=== PATIENT | male | born 2000 | race Caucasian/White ===

== ENCOUNTER 2020-08-23 12:11 | Observation (INO) | payer OTHER, SELFPAY ==
[2020-08-23] VITALS (18 sets, daily range): BP systolic 112–135; BP diastolic 65–87; PULSE 50–84; RESP 14–70; TEMP 36.6–37; O2SAT 95–100; BMI 26.4
--- NOTE | 2020-08-23 13:54 | CTR_ITS ---
PROCEDURE INFORMATION: Exam: CT Abdomen And Pelvis With Contrast Exam date and time: 08/23/2020 2:33 PM Age: 20 years old Clinical indication: Abdominal pain; Localized; Right lower quadrant (rlq); Patient HX: Rlq pain x1 day, fever, PT denies surg HX on ap, PT denies HX of CA, PT denies smoking HX TECHNIQUE: Imaging protocol: Computed tomography of the abdomen and pelvis with intravenous contrast. Axial, coronal and sagittal reformatted images were created and reviewed. Radiation optimization: All CT scans at this facility use at least one of these dose optimization techniques: automated exposure control; mA and/or kV adjustment per patient size (includes targeted exams where dose is matched to clinical indication); or iterative reconstruction. Contrast material: OMNIPAQUE 300; Contrast volume: 95 ml; Contrast route: INTRAVENOUS (IV); COMPARISON: No relevant prior studies available. RADIATION DOSE METRICS: Total DLP (mGy-cm): 889.6 FINDINGS: Liver: 3 mm low-density lesion in the right hepatic lobe, too small to characterize. Gallbladder and bile ducts: No radiodense gallstones. No biliary ductal dilatation. Pancreas: Unremarkable. Spleen: Unremarkable. Adrenal glands: Normal. No mass. Kidneys and ureters: No mass. No radiodense calculi. No hydronephrosis. Stomach and bowel: No bowel wall thickening. No obstruction. No pneumatosis. Appendix: Dilated, thickwalled, hyperemic appendix with mild periappendiceal haziness. Intraperitoneal space: No free fluid. No organized fluid collection. No free air. Vasculature: Unremarkable. No aneurysm. Lymph nodes: Small mesenteric lymph nodes, likely reactive. No pathologically enlarged lymph nodes. Urinary bladder: Unremarkable as visualized. Reproductive: Unremarkable. Bones/joints: No acute osseous abnormality. Soft tissues: Unremarkable. CT/CT abdomen pelvis w con* [id number] IMPRESSION: 1. Acute appendicitis, as described above. No abscess, obstruction or free air. 2. Additional findings, as above. Radiation Dose CTDIVOL = (mGy): DLP = 889.6 (mGy-cm)
--- NOTE | 2020-08-23 13:57 | W.ED.ABDPA2 ---
HPI - Abdominal Pain General: Chief Complaint: Abdominal Pain Stated Complaint: RUQ ABD PAIN Time Seen by Provider: 08/23/20 13:47 Source: patient Mode of arrival: ambulatory Limitations: no limitations History of Present Illness: HPI narrative: 20-year-old male states been having abdominal pain started yesterday. Symptoms right lower quadrant is worsened throughout the day. He states now 7 out of 10. Worse with palpation and improved with laying still. Denies any vomiting or diarrhea. Denies any fever. MD elicited complaint: abdominal pain Pertinent past history: none Onset (ago): day(s) Pain Consistency: constant Location: RLQ Severity: moderate Quality: stabbing Radiation: none Migration to: no migration Exacerbating factors: movement Relieving factors: rest Associated Symptoms: Denies chills, diarrhea, dysuria, fever(s), nausea and vomiting Review of Systems Const: Denies: fever(s), chills, body aches or change in appetite Eyes: Denies: blurry vision or eye discomfort ENMT: Denies: throat pain or dental pain Card: Denies: chest pain Resp: Denies: dyspnea GI: Denies: abdominal pain, nausea, vomiting or diarrhea : Denies: dysuria Musc: Denies: neck pain or back pain Skin/Breast: Denies: rash Neuro: Denies: headache(s) Psych: Denies: depression Misha/Lymph: Denies: easy bruising All/Imm: Denies: urticaria Physical Exam Const: COMMON NORMALS: no acute distress, patient oriented x3 and healthy appearing HENMT: COMMON NORMALS: normocephalic and atraumatic HEAD & SCALP: normocephalic and atraumatic Eye: COMMON NORMALS: Equal, round and reactive pupils present and EOMs intact bilaterally PUPIL: Yes Equal, round and reactive pupils present Neck/C-Spine: COMMON NORMALS: full ROM and supple Chest: COMMONS NORMALS: normal inspection of the chest and normal palpation of entire chest wall Resp: COMMON NORMALS: normal respiratory effort, No retractions, No use of accessory muscles and clear to auscultation bilaterally AUSCULTATION: clear to auscultation bilaterally Cardio: COMMON NORMALS: regular rate, regular rhythm and No murmurs present (Cardio) RATE: regular rate RHYTHM: regular rhythm GI: COMMON NORMALS: Normal to inspection, nondistended, normoactive bowel sounds present, Soft to palpation, non-tender and no masses PALPATION: Yes Soft to palpation and Yes Tenderness to palpation present (GI) Details: RLQ Extremity: COMMON NORMALS: normal to inspection and full ROM Neuro: COMMON NORMALS: patient oriented x3, moves all extremities and no focal motor deficits Psych: COMMON NORMALS: mental status grossly normal, Normal thought process present and cooperative THOUGHT PROCESS: Normal thought process present Skin: COMMON NORMALS: no rashes or lesions noted and no wounds GENERAL SKIN EXAM: no rashes or lesions noted Course Vital Signs: Vital signs: Vital Signs Temperature 98.6 F 08/23/20 12:24 Pulse Rate 50 L 08/23/20 12:24 Respiratory Rate 18 08/23/20 14:19 Blood Pressure 123/71 08/23/20 12:24 Pulse Oximetry 97 08/23/20 14:19 MDM - Abdominal Pain MDM Narrative: Medical decision making narrative: Patient presents with abdominal pain with CT findings consistent with appendicitis. I spoke to surgeon on-call will admit to surgery. Patient is well-appearing here and pain has been controlled. Lab Data: Labs: Lab Results 08/23/20 08/23/20 08/23/20 Range/Units 13:08 14:08 14:08 WBC 11.8 H (4.0-10.0) 10^3/ uL RBC 5.20 (4.1-5.3) 10^6/u L Hgb 15.7 (11.7-16.6) g/dL Hct 46.0 (42.0-52.0) % MCV 88.5 (80-94) fL MCH 30.2 (28.0-34.0) pg MCHC 34.1 (30.0-36.0) g/dL RDW 11.5 L (12.1-15.1) % Plt Count 255 (130-400) 10^3/c mm MPV 11.0 H (7.4-10.4) fL Neut % (Auto) 63.4 % Lymph % (Auto) 24.9 % [place] % (Auto) 10.3 % Eos % (Auto) 0.6 % Baso % (Auto) 0.3 % Neut # (Auto) 7.47 (1.8-7.7) 10^3/u L Lymph # (Auto) 2.9 (0.8-4.8) 10^3/u L [place] # (Auto) 1.2 H (0.2-0.9) 10^3/u L Eos # (Auto) 0.1 (0.0-0.8) 10^3/u L Baso # (Auto) 0.0 (0.0-0.1) 10^3/u L Nucleated RBC % (a uto) 0 % Nucleated RBCs # 0.0 /100WBC Sodium 138 (136-145) mmol/L Potassium 3.8 (3.5-5.1) mmol/L Chloride 101 (98-107) mmol/L Carbon Dioxide 28 (22-29) mmol/L Anion Gap 12.8 (5-19) BUN 7 (6-20) mg/dL Creatinine 1.0 (0.7-1.2) mg/dL GFR Calculation 93.4 (90-130) mL/min Glucose 91 (65-115) mg/dL Calcium 9.6 (8.5-10.5) mg/dL Total Bilirubin 0.7 (0.15-1.2) mg/dL AST 15 (0-40) U/L ALT 20 (0-41) U/L Alkaline Phosphata se 56 (40-130) IU/L Total Protein 7.0 (6.6-8.7) g/dL Albumin 4.6 (3.5-5.2) g/dL Globulin 2.4 (1.3-4.6) g/dL Lipase 25 (13-60) U/L Urine Color Straw (Yellow) Urine Appearance Clear (CLEAR) Urine pH 7 (5-7) Ur Specific Gravit y 1.005 (1.005-1.030) Urine Protein Neg (Negative) Urine Glucose (UA) Norm (Normal) Urine Ketones Negative (Negative) Urine Blood 2+ H (Negative) Urine Nitrate Negative (Negative) Urine Bilirubin Neg (Negative) Urine Urobilinogen Norm (Negative) mg/dL Ur Leukocyte [place]umiko ase Negative (Negative) Urine RBC Rare (0-2) /hpf Urine WBC None (0-5) /hpf Ur Squamous Epith Cells None (0-5) /hpf Amorphous Sediment Not Reportable Urine Bacteria Trace (NONE) /hpf Imaging Data ^: CT Abd/Pel: Radiologist's impression: [address] [address] [address] Scan Report Signed with Addenda Patient: Randell Will Unit #: [id number] : 2000 Age/Sex: 20 / M ADM Date: 08/23/20 Loc: ER Room/Bed: Attending Dr: Ordering Provider/Ordering MD: Kishore Juarez MD Date of Service: 08/23/20 Procedure(s): CT abdomen pelvis w con* [id number] Accession Number(s): [id number] Report Number: [id number]/CT abdomen pelvis w con* [id number] ADDENDUM: THIS REPORT CONTAINS FINDINGS THAT MAY BE CRITICAL TO PATIENT CARE. The findings were verbally communicated via telephone conference with kishore Juarez at 3:12 PM [employer]ES SUPERVISOR on 08/23/2020. The findings were acknowledged and understood. Radiation Dose CTDIVOL = (mGy): DLP = 889.6 (mGy-cm) Addendum Dictated By: Brian Quach MD Addendum Signed By: Brian Quach MD Signed Date/Time: 0 1514 Addendum Cosigned By: PROCEDURE INFORMATION: Exam: CT Abdomen And Pelvis With Contrast Exam date and time: 08/23/2020 2:33 PM Age: 20 years old Clinical indication: Abdominal pain; Localized; Right lower quadrant (rlq); Patient HX: Rlq pain x1 day, fever, PT denies surg HX on ap, PT denies HX of CA, PT denies smoking HX TECHNIQUE: Imaging protocol: Computed tomography of the abdomen and pelvis with intravenous contrast. Axial, coronal and sagittal reformatted images were created and reviewed. Radiation optimization: All CT scans at this facility use at least one of these dose optimization techniques: automated exposure control; mA and/or kV adjustment per patient size (includes targeted exams where dose is matched to clinical indication); or iterative reconstruction. Contrast material: OMNIPAQUE 300; Contrast volume: 95 ml; Contrast route: INTRAVENOUS (IV); COMPARISON: No relevant prior studies available. RADIATION DOSE METRICS: Total DLP (mGy-cm): 889.6 FINDINGS: Liver: 3 mm low-density lesion in the right hepatic lobe, too small to characterize. Gallbladder and bile ducts: No radiodense gallstones. No biliary ductal dilatation. Pancreas: Unremarkable. Spleen: Unremarkable. Adrenal glands: Normal. No mass. Kidneys and ureters: No mass. No radiodense calculi. No hydronephrosis. Stomach and bowel: No bowel wall thickening. No obstruction. No pneumatosis. Appendix: Dilated, thickwalled, hyperemic appendix with mild periappendiceal haziness. Intraperitoneal space: No free fluid. No organized fluid collection. No free air. Vasculature: Unremarkable. No aneurysm. Lymph nodes: Small mesenteric lymph nodes, likely reactive. No pathologically enlarged lymph nodes. Urinary bladder: Unremarkable as visualized. Reproductive: Unremarkable. Bones/joints: No acute osseous abnormality. Soft tissues: Unremarkable. CT/CT abdomen pelvis w con* [id number] IMPRESSION: 1. Acute appendicitis, as described above. No abscess, obstruction or free air. 2. Additional findings, as above. Discharge Plan Discharge Patient Disposition: Admitted As Inpatient Clinical Impression: Acute appendicitis Qualifiers: Acute appendicitis type: unspecified acute appendicitis type Qualified Code(s): K35.80 - Unspecified acute appendicitis Condition: Stable Coding Level of Care Code ED [employer] for [facility] Fwd Exam Comprehensive
[2020-08-23 14:10] LABS: Add Urine Microscopic? YES; Bilirubin Urine Neg (Negative); Blood Urine 2+ (Negative); Glucose Urine UA Norm (Normal); Ketones Urine Negative (Negative); Leukocyte Esterase Urine Negative (Negative); Nitrate Urine Negative (Negative); Protein Urine Neg (Negative); RBC Urine RARE /hpf (0-2); Specific Gravity, Urine 1.005 (1.005-1.030); Urine Appearance Clear (CLEAR); Urine Color Straw (Yellow); Urobilinogen Urine Norm (Negative); pH Urine 7 (5-7)
[2020-08-23 14:11] LABS: Add Urine Culture? No; Bacteria Urine TRACE /hpf
[2020-08-23] MEDS: sodium chloride 0.9% 1,000 ML 999 ML IV (14:15)
[2020-08-23] MEDS: ondansetron 2 mg/ML SDV 2 mL 4 MG IVP (14:17)
[2020-08-23] MEDS: morphine 4 mg/mL SDV 1 mL IVP ×2 (14:19→22:43)
[2020-08-23 14:21] LABS: Basophils % 0.3 %; Eosinophils # 0.1 10^3/uL (0.0-0.8); Eosinophils % 0.6 %; Hemoglobin 15.7 g/dL (11.7-16.6); Lymphocytes # 2.9 10^3/uL (0.8-4.8); Lymphocytes % 24.9 %; Mean Corpuscular HGB Conc 34.1 g/dL (30.0-36.0); Mean Corpuscular Hemoglobin 30.2 pg (28.0-34.0); Mean Corpuscular Volume 88.5 fL (80-94); Monocytes # 1.2 10^3/uL (0.2-0.9); Monocytes % 10.3 %; Neutrophils # 7.47 10^3/uL (1.8-7.7); Neutrophils % 63.4 %; Nucleated Red Blood Cells % 0 %; Platelet Count 255 10^3/cmm (130-400); Red Cell Distribution Width 11.5 % (12.1-15.1); White Blood Count 11.8 10^3/uL (4.0-10.0)
[2020-08-23 14:45] LABS: Alanine Aminotransferase 20 U/L (0-41); Albumin Level 4.6 g/dL (3.5-5.2); Alkaline Phosphatase 56 IU/L (40-130); Anion Gap 12.8 (5-19); Aspartate Amino Transferase 15 U/L (0-40); Blood Urea Nitrogen 7 mg/dL (6-20); Calcium 9.6 mg/dL (8.5-10.5); Carbon Dioxide 28 mmol/L (22-29); Chloride 101 mmol/L (98-107); Globulin 2.4 g/dL (1.3-4.6); Glomerular Filtration Rate 93.4 mL/min (90-130); Glucose 91 mg/dL (65-115); Lipase 25 U/L (13-60); Osmolality Calculated 284 mOsm/kg (285-295); Potassium 3.8 mmol/L (3.5-5.1); Sodium 138 mmol/L (136-145); Total Bilirubin 0.7 mg/dL (0.15-1.2)
[2020-08-23] MEDS: iohexol 300 mg/mL 100 mL Btl IV (14:45)
--- NOTE | 2020-08-23 15:16 | PM.HP ---
Providers/Chief Complaint Admitting Physician: Oleksandr Ware MD Chief Complaint: RLQ ABD PAIN History of Present Illness Mr Randell Will is a 20 year old male presents to the emergency department with right-sided abdominal pain that started around 3 PM yesterday associated with nausea pain was so intense and sharp on the right side. Patient woke up today felt a bit better but on moving around started hurting, so he presented to the ER and further work-up showed a leukocytosis of 11,000+ a CT scan of the abdomen and pelvis shown below FINDINGS: Liver: 3 mm low-density lesion in the right hepatic lobe, too small to characterize. Gallbladder and bile ducts: No radiodense gallstones. No biliary ductal dilatation. Pancreas: Unremarkable. Spleen: Unremarkable. Adrenal glands: Normal. No mass. Kidneys and ureters: No mass. No radiodense calculi. No hydronephrosis. Stomach and bowel: No bowel wall thickening. No obstruction. No pneumatosis. Appendix: Dilated, thickwalled, hyperemic appendix with mild periappendiceal haziness. Intraperitoneal space: No free fluid. No organized fluid collection. No free air. Vasculature: Unremarkable. No aneurysm. Lymph nodes: Small mesenteric lymph nodes, likely reactive. No pathologically enlarged lymph nodes. Urinary bladder: Unremarkable as visualized. Reproductive: Unremarkable. Bones/joints: No acute osseous abnormality. Soft tissues: Unremarkable. CT/CT abdomen pelvis w con* [id number] IMPRESSION: 1. Acute appendicitis, as described above. No abscess, obstruction or free air. 2. Additional findings, as above. Patient recalls low-grade temperature but no chills denies any recent exposure to COVID-19 patients no previous episodes of such pain and no change in bowel habits or dysuria, patient reports that he had previous history of tonsillectomy and wisdom tooth extraction without complications. General surgery was consulted further evaluation management Review of Systems General: Reports: 10 or more systems reviewed and unremarkable except in HPI and below Medications/Allergies Home Medications Medication Instructions Recorded Confirmed Last Taken Type acetaminophen [Tylenol] 325 - 650 mg PO Q4H PRN 08/23/20 08/23/20 08/22/20 History ibuprofen 200 - 400 mg PO Q4H PRN 08/23/20 08/23/20 08/22/20 History Allergies Allergy/AdvReac Type Severity Reaction Status Date / Time Penicillins Allergy Severe Anaphylaxis Verified 08/23/20 15:33 PFSH Acute PFSH: Medical History Tonsillectomy planned Surgical History H/O wisdom tooth extraction Social History Smoking and tobacco status: never smoked Alcohol intake: never Substance/Drug Use: never Vitals/I&O/Wt Last Vital Signs Temp 98.6 F 08/23/20 12:24 Pulse 50 L 08/23/20 12:24 Resp 18 08/23/20 14:19 BP 123/71 08/23/20 12:24 Pulse Ox 97 08/23/20 14:19 Weight last 48 hrs Weight 200 lb Physical Exam Narrative: EXAM NARRATIVE: Patient is conscious alert oriented X3 BMI 26.4 Head and neck examination PERRLA no masses no cervical lymphadenopathy no jaundice Cardiac examination audible S1-S2 no murmurs no gallops no arrhythmias Chest is clear bilateral,abscence of Rhonchi or wheezes,no surgical emphysema Abdomen right lower quadrant tenderness with guarding and localized rigidity at McBurney's point. Rovsing sign is positive. Otherwise nondistended soft no organomegaly guarding or rigidity/no signs of peritonitis Extremities no cyanosis no clubbing no edema Data : 08/23/20 14:08 08/23/20 14:08 A&P Assessment and plan (1) Acute appendicitis: After thorough history physical examination and reviewing the chart and CT scanimages with my personal interpretion, I counseled the patient for laparoscopic appendectomy possible open. Indications, risks, benefits and alternatives were all discussed with the patient and did agree to proceed. Rationale was carefully and clearly discussed with the patient.Appropriate informed consent have been reviewed and signed Status: Acute Qualifiers: Acute appendicitis type: unspecified acute appendicitis type Qualified Code(s): K35.80 - Unspecified acute appendicitis Attestations Medical Necessity Statement*: Observation status postoperative pain control Time Spent in Patient Care: (>than 50% of time spent in counselling and/or direct pt care on unit). 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
[2020-08-23] MEDS: sodium chloride 0.9% 1,000 ML 30 ML IV (16:01)
--- NOTE | 2020-08-23 16:51 | ANES.PREANE2 ---
Pre-Anesthetic Assessment Pre-Anesthetic Assessment: Height/Weight: Height 1.85 m Weight 90.718 kg Temp Pulse Resp BP Pulse Ox 98.3 F 53 L 18 122/86 98 08/23/20 15:48 08/23/20 15:48 08/23/20 15:48 08/23/20 15:48 08/23/20 15:48 Preop Diagnosis: Acute appendicitis Proposed Procedure: Operation Date: 08/23/20 16:00 Proposed Procedures p Laparoscopic Appendectomy(Not Applicable) - Oleksandr Ware MD Operation Date: 08/23/20 17:00 Proposed Procedures p Laparoscopic Appendectomy(Not Applicable) - Oleksandr Ware MD Familial anesthetic complications: None Was Beta Damon taken within 24 hours: N/A Last intake: Intake Last Liquid Date 08/23/20 Last Liquid Time 11:30 Last Solid Date 08/22/20 Last Solid Time 21:00 Social: Social History: Tobacco and No alcohol Exam: Pre-Anes Outpt Exam: alert, oriented x 3, clear to auscultation bilaterally and regular rate & rhythm Airway: Cervical ROM: WNL MP: 2 Dentition: Full Anesthetic Plan: ASA status: 1E Anesthesia: General Risk of > 500 ml blood loss (7ml/kg in children): No Meds/Allergies Current Medications: Current Medications Generic Name Dose Route Start Last Admin Trade Name Freq PRN Reason Stop Dose Admin Sodium Chloride 1,000 mls @ 30 ml s/hr 08/23/20 15:45 08/23/20 16:01 Sodium Chloride 0.9% IV 08/24/20 15:44 30 mls/hr .Q24H SAILAJA Administration PFSH Anesthesia PFSH: Medical History Tonsillectomy planned Surgical History H/O wisdom tooth extraction Social History Smoking and tobacco status: never smoked Alcohol intake: never Substance/Drug Use: never Data Anesthesia CBC & Chem 7: 08/23/20 14:08 08/23/20 14:08 Other Labs: Laboratory Results - last 48 hr 08/23/20 08/23/20 08/23/20 13:08 14:08 14:08 WBC 11.8 H RBC 5.20 Hgb 15.7 Hct 46.0 MCV 88.5 MCH 30.2 MCHC 34.1 RDW 11.5 L Plt Count 255 MPV 11.0 H Neut % (Auto) 63.4 Lymph % (Auto) 24.9 [place] % (Auto) 10.3 Eos % (Auto) 0.6 Baso % (Auto) 0.3 Neut # (Auto) 7.47 Lymph # (Auto) 2.9 [place] # (Auto) 1.2 H Eos # (Auto) 0.1 Baso # (Auto) 0.0 Nucleated RBC % (auto) 0 Nucleated RBCs # 0.0 Sodium 138 Potassium 3.8 Chloride 101 Carbon Dioxide 28 Anion Gap 12.8 BUN 7 Creatinine 1.0 GFR Calculation 93.4 Glucose 91 Calculated Osmolality 284 L Calcium 9.6 Total Bilirubin 0.7 AST 15 ALT 20 Alkaline Phosphatase 56 Total Protein 7.0 Albumin 4.6 Globulin 2.4 Lipase 25 Urine Color Straw Urine Appearance Clear Urine pH 7 Ur Specific [place] 1.005 Urine Protein Neg Urine Glucose (UA) Norm Urine Ketones Negative Urine Blood 2+ H Urine Nitrate Negative Urine Bilirubin Neg Urine Urobilinogen Norm Ur Leukocyte Esterase Negative Urine RBC Rare Urine WBC None Ur Squamous Epith Cells None Amorphous Sediment Not Reportable Urine Bacteria Trace Cardiac Studies: No Data to Display
[2020-08-23] MEDS: ciprofloxacin 400 MG/200 ML PREMIX 200 MG IV (17:06)
[2020-08-23] MEDS: metroNIDAZOLE IV 500 MG/100 ML PREMIX 100 MG IV (17:12)
[2020-08-23] MEDS: lidocaine 2% INJ 20 mL INJECTION (17:23)
--- NOTE | 2020-08-23 18:01 | P.OP_ITS ---
Operative Report Date of procedure: August 23, 2020 Pre-op Diagnosis: Acute appendicitis Post-op diagnosis: same Post-op Diagnosis: Retrocecal acute appendicitis without suppuration Procedure Done: Laparoscopic appendectomy Specimens removed/disposition: Appendix Surgeon: Oleksandr Ware Integrated Logistics Support Manager: Surgical jaky Holguin nurse Sarah Anesthesia: General (cushion maker hand Tyrel) Estimated blood loss (mL): 10 Condition: stable Disposition: observation Brief History: This is a pleasant 20 years old gentleman presents with worsening acute abdominal pain was found to have acute appendicitis on the CT scan. After thorough history physical examination and reviewing the chart and images with my personal interpretion, I counseled the patient for laparoscopic appendectomy possible open. Indications, risks, benefits and alternatives were all discussed with the patient and did agree to proceed. Rationale was carefully and clearly discussed with the patient.Appropriate informed consent have been reviewed and signed Procedure: Patient after being identified in the holding area and asked to void urine, and informed consent per chart ,patient was then taken back to the OR placed in supine position got intubated by anesthesia left arm was tucked tucked ,Timeout was done verifying the patient's name/date of /planned procedure and destination after the procedure, all were in agreement., preoperative antibiotics administered per protocol. prep and drape of the abdomen was done under the usual sterile technique. Started by longitudinal skin incision supraumbilical using a Bonilla trocar technique safe entry to the abdominal cavity was achieved verified by using 10 mm zero degree laparoscopy, switched to a 30? scope under direct visualization a suprapubic 5 mm trocar was inserted followed by another 5 mm trocar inserted in the left lower quadrant, I was able to position the patient in an T Morrison and left side down, dissection of the retrocecal acutely inflamed appendix there was some adhesions towards the lateral pelvic wall that was taken down by sharp and blunt dissection, attention was deviated to the healthy base of the appendix where I had to switch the camera to 5 mm 30? scope got introduced through the left lower quadrant and through the Bonilla trocar under direct visualization a GI stapler 45 mm blue load was applied at the healthy part of the base of the appendix, and an Endoloop PDS was applied onto the mesoappendix for control , the appendix was then retrieved in an Endo Catch bag, final survey was done of the abdomen and pelvis , irrigation with warm saline, and suction was obtained. 5 mm clips were applied onto the mesoappendix as well as the appendectomy staple line and a right lateral pelvic wall for minimal oozing. Final look laparoscopy was done showing no other abnormalities or injuries, all trocars were taken out under direct visualization after the supraumblical trocar site was closed by #1 PDS sutures under direct vision using fascial closure device ,followed by skin closure using 4-0 Monocryl of all trocar site incisions followed by surgical glue. infiltration of local lidocaine 2% was done to all incision sites.Dry dressing was applied. Count was completed at the end of the procedure for [place], sponges and instruments Patient tolerated the procedure well and was transferred to the recovery area after extubation. I was present for the whole entire procedure
[2020-08-23] MEDS: meperidine 50 mg/mL INJ 12.5 MG IVP ×2 (18:15→18:20)
[2020-08-23] MEDS: HYDROcodone-acetaminophen 5-325 mg Tablet 1 TAB PO (20:02)
[2020-08-23] MEDS: lactated ringers 1,000 ML 100 ML IV (20:03)
[2020-08-24 01:40] VITALS: BP 133/80; PULSE 48; RESP 18; TEMP 36.8; O2SAT 97
--- NOTE | 2020-08-24 02:30 | PC.NURSE ---
Ice pack wrapped in pillow case applied to pts abdomen.
[2020-08-24] MEDS: HYDROcodone-acetaminophen 5-325 mg Tablet 1 TAB PO (02:55)
--- NOTE | 2020-08-24 02:57 | PC.NURSE ---
Pt was unable to tolerate ice pack to abdomen.
[2020-08-24 04:00] VITALS: BP 114/71; PULSE 64; RESP 17; TEMP 36.7; O2SAT 96
[2020-08-24 04:39] VITALS: RESP 18
[2020-08-24] MEDS: morphine 4 mg/mL SDV 1 mL IVP (04:39)
[2020-08-24] MEDS: lactated ringers 1,000 ML 100 ML IV (04:43)
--- NOTE | 2020-08-24 05:48 | PM.SDS ---
Short Stay Summary Providers Date of Admit/Discharge: 08/24/20 Attending Provider: Oleksandr Ware MD Chief Complaint: RLQ ABD PAIN HPI History of Present Illness Randell Will is a 20 year old male presented with worsening abdominal pain and was found to have acute appendicitis. Patient undergone uneventful laparoscopic appendectomy. Review of Systems General: Reports: 10 or more systems reviewed and unremarkable except in HPI and below Home Meds/Allergies Home Medications and Allergies Allergies Allergy/AdvReac Type Severity Reaction Status Date / Time Penicillins Allergy Severe Anaphylaxis Verified 08/24/20 08:11 PFSH Acute PFSH: Medical History Tonsillectomy planned Surgical History H/O wisdom tooth extraction Social History Smoking and tobacco status: never smoked Alcohol intake: never Substance/Drug Use: never Vitals/I&O/Wt Last Vital Signs Temp 98.0 F 08/24/20 04:00 Pulse 64 08/24/20 04:00 Resp 18 08/24/20 04:39 BP 114/71 08/24/20 04:00 Pulse Ox 96 08/24/20 04:00 08/23/20 08/23/20 08/24/20 14:59 22:59 06:59 Intake Total 400 / 400 1166.667 / 1566.667 Output Total 660 / 660 625 / 1285 Balance -260 / -260 541.667 / 281.667 Weight last 48 hrs Weight 200 lb Physical Exam Narrative: EXAM NARRATIVE: Patient is conscious alert oriented X3 BMI 26.4 Head and neck examination PERRLA no masses no cervical lymphadenopathy no jaundice Abdomen nontender except mildly at the incision site nondistended soft no organomegaly guarding or rigidity/no signs of peritonitis Extremities no cyanosis no clubbing no edema Hospital Course Discharge Summary Patient overall did well after surgery tolerating p.o. intake and passing gas. Slight elevation of WBC count postoperatively likely due to stress as the appendix was inflamed but without evidence of perforation. We will plan to send the patient home empirically on ciprofloxacin 500 mg twice daily for 5 days. Also pain medications has been ordered and will have the patient follow-up with me in the office in 10 days. Patient maintained to have stable vital signs and good urine output. Ambulating with ease. SSS Data Data Completed and Pending: Completed Studies During Hospitalization Category Date Time Status CT abdomen pelvis w con* [id number] Urge nt Cat Scan 08/23/20 13:54 Completed Pending at discharge Category Date Time Status ES surgery / GI i mages Routine Exams 08/23/20 16:10 Taken Basic Metabolic P zeferino AM [facility] Lab 08/24/20 05:28 Received Complete Blood Co unt w/Auto AM [facility] Lab 08/24/20 05:28 Results Pathology: Surgic al [PTH] Routine Pth 08/23/20 18:16 Ordered Diagnoses at Discharge Discharge Diagnosis (1) Acute appendicitis: Status: Resolved Permanent problem details: Condition resolved Qualifiers: Acute appendicitis type: unspecified acute appendicitis type Qualified Code(s): K35.80 - Unspecified acute appendicitis Discharge Plan Discharge Patient Disposition: Home Condition: Stable Prescriptions: [place] 5-325 mg tablet 1 tab PO Q6H PRN (Reason: pain) Qty: 28 RF: 0 Cipro 500 mg tablet 500 mg PO BID 5 Days Qty: 10 RF: 0 Discontinued acetaminophen [Tylenol] 325 mg Tablet 325 - 650 mg PO Q4H PRN (Reason: Pain) RF: 0 ibuprofen 200 mg Tablet 200 - 400 mg PO Q4H PRN (Reason: Pain) RF: 0 Discharge Orders: Discharge Order (Routine); Ordered 08/24/20 Ordered By: Oleksandr Ware Referrals: Oleksandr Ware MD [Physician] - (Return to surgery office in 10 days) Discharge Diet: Advance as tolerated Discharge Activity: Limit activity as instructed Patient Instructions: Appendicitis (GEN) Activity Restrictions/Additional Instructions: 1. Patient can shower after 48 hours from surgery 2. Remove Dermabond 7 to 10 days after surgery, if there is a secondary dressing can take down after 48 hours. 3. Up and walking as tolerated 4. Do lift more than 5 pounds first 2 weeks after surgery and not more than 25 pounds 6 to 8 weeks after surgery. 5. Do not operate heavy machinery or drive while using pain medications. 6.Contact the office or return to the ER for worsening nausea vomiting fevers or chills, or noticing any redness around incision sites or discharge. Attestations Medical Necessity Statement*: Observation status overnight for pain control. Time Spent in Patient Care*: less than 30 min Specific Discharge Activities: Specific discharge activities: educating patient Status at Discharge: Cognitive status at discharge: cognitively intact, Behavioral status at discharge: cooperative, Functional status at discharge: independent ambulation Overall status at discharge: patient is progressing back to baseline Quality Metrics Clinical Quality Measures: During this hospital stay, did patient experience: None Coding Level of Care Code Acute [employer] Diagnoses Acute appendicitis K35.80 Acute appendicitis type: unspecified acute appendicitis type
[2020-08-24 05:50] LABS: Basophils % 0.2 %; Hematocrit 46.3 % (42.0-52.0); Hemoglobin 15.6 g/dL (11.7-16.6); Lymphocytes # 1.7 10^3/uL (0.8-4.8); Lymphocytes % 13.1 %; Mean Corpuscular HGB Conc 33.7 g/dL (30.0-36.0); Mean Corpuscular Hemoglobin 30.1 pg (28.0-34.0); Mean Corpuscular Volume 89.2 fL (80-94); Mean Platelet Volume 10.8 fL (7.4-10.4); Monocytes # 0.9 10^3/uL (0.2-0.9); Monocytes % 7.1 %; Neutrophils # 10.08 10^3/uL (1.8-7.7); Neutrophils % 79.2 %; Nucleated Red Blood Cells % 0 %; Platelet Count 284 10^3/cmm (130-400); Red Blood Count 5.19 10^6/uL (4.1-5.3); Red Cell Distribution Width 11.2 % (12.1-15.1); White Blood Count 12.7 10^3/uL (4.0-10.0)
[2020-08-24 06:45] LABS: Anion Gap 14.9 (5-19); Blood Urea Nitrogen 8 mg/dL (6-20); Calcium 9.4 mg/dL (8.5-10.5); Carbon Dioxide 25 mmol/L (22-29); Chloride 101 mmol/L (98-107); Glomerular Filtration Rate 105.5 mL/min (90-130); Glucose 107 mg/dL (65-115); Osmolality Calculated 283 mOsm/kg (285-295); Potassium 3.9 mmol/L (3.5-5.1); Sodium 137 mmol/L (136-145)
--- NOTE | 2020-08-24 07:35 | PC.NURSE ---
Discharge instructions reviewed verbalized understanding, denies further questions or concerns, refuses to wait until 0800 for staff to call and make follow up appointment with Dr. Shelley, states, I will call him at 0800 and make the appointment for 10 days like it says on the paper.
[2020-08-24 07:57] VITALS: BP 115/70; PULSE 66; RESP 16; TEMP 36.7; O2SAT 97
== END 2020-08-24 07:57 | disposition home or self-care (01) ==
LOC: ER 15:17 → OR 15:21 → MEDSURG 17:19
PROVIDERS: Registered Nurse; Admitting Provider Surgery; Emergency Provider Emergency Medicine; Visit Provider Surgery
PROC: 0DTJ4ZZ Resection of Appendix, Percutaneous Endoscopic Approach (ICD-10-PCS; CPT 44970; principal; 2020-08-23 17:00)
DX: K35.80 Unspecified acute appendicitis (principal)
CPT/HCPCS: 44970; 12345; 36415; 74177; 80048; 80053; 81001; 83690; 85025; 88304; 96361; 96365; 96367; 96375; 99282; 99285; G0378; J0131; J0744; J1100; J2175; J2270; J2405; J2704; J3010; J3490; J7030; Q9967; S0030

== ENCOUNTER → 2021-10-01 16:15 | Outpatient (BNVA) | payer OTHER, SELFPAY | PROVIDERS: Visit Provider Family Medicine | DX: R50.9 Fever, unspecified (principal) | CPT/HCPCS: 87400; 87635 ==

== ENCOUNTER → 2022-10-24 15:38 | Outpatient (BNVA) | payer OTHER, SELFPAY | PROVIDERS: Visit Provider Nurse Practitioner Family | DX: Z20.2 Contact with and (suspected) exposure to infections with a predominantly sexual mode of transmission (principal) | CPT/HCPCS: 87491; 87591 ==

== ENCOUNTER → 2025-01-27 15:48 | Outpatient (BNVA) | payer OTHER, SELFPAY | PROVIDERS: Visit Provider Emergency Medicine | DX: R39.9 Unspecified symptoms and signs involving the genitourinary system (principal); Z20.2 Contact with and (suspected) exposure to infections with a predominantly sexual mode of transmission | CPT/HCPCS: 81000; 86592; 87086; 87491; 87591; 87806 ==